=== PATIENT | female | born 2000 | race Asian ===

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

== ENCOUNTER 2021-03-08 09:42 | Emergency (ER) | payer OTHER ==
[~2021-03-08] VITALS: Ht 149.9 cm; Wt 56.8 kg
[~2021-03-08 09:42] MED LIST: DEPOP150I IM
[2021-03-08] MEDS ORDERED: ACETAMINOPHEN 325 MG TABLET PO ONE (10:15)
[2021-03-08] MEDS ORDERED: ONDANSETRON HCL 4 MG TABLET PO ONE (10:15)
[2021-03-08 10:29] VITALS: BP 111/78
== END 2021-03-08 10:38 | disposition home or self-care (01) ==
LOC: EMS 09:42
DX: J02.9 Acute pharyngitis, unspecified (principal); Z20.822 Contact with and (suspected) exposure to COVID-19
CPT/HCPCS: 99283; Q0162; U0003

== ENCOUNTER 2021-11-11 12:25 | Emergency (ER) | payer OTHER ==
[~2021-11-11] VITALS: Ht 149.9 cm; Wt 52.3 kg
[2021-11-11 15:13] VITALS: BP 124/84
[2021-11-11] MEDS ORDERED: NITR-75 PO (15:39)
[2021-11-11] MEDS ORDERED: PHEN-1103 PO (15:39)
== END 2021-11-11 16:15 | disposition home or self-care (01) ==
LOC: EMS 12:25
DX: N39.0 Urinary tract infection, site not specified (principal); M54.50 Low back pain, unspecified
CPT/HCPCS: 81002; 99283